=== PATIENT | female | born 1995 | race Caucasian/White ===

== ENCOUNTER 2020-06-24 15:47 | Emergency (ER) | payer OTHER, BC, SELFPAY ==
[2020-06-24 16:54] VITALS: BP 119/70; PULSE 75; RESP 18; TEMP 36.8; O2SAT 99; BMI 22.6
[2020-06-24 20:00] VITALS: BP 115/80; PULSE 65; RESP 16; TEMP 36.9; O2SAT 98
--- NOTE | 2020-06-24 20:22 | ED.MEDCLEAR ---
HPI - Medical Clearance General Source: patient, RN notes reviewed and old records reviewed Mode of arrival: ambulatory Limitations: no limitations History of Present Illness HPI Narrative: 24-year-old female here today after sustaining a needlestick at work. 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 Patient reports that she did not had much of bleeding. Patient reports that the resident has no known history of HIV or hepatitis. She has been a resident at [facility] for quite some time. Patient reports that she herself has a history of seizures and is taking seizure medicine. She would rather not wanted to take any antiviral medications at this time. Patient denies any other symptoms. Review of Systems Review of Systems: Constitutional : No Weight loss, No Fever, No Chills, No Night Sweats, No Fatigue, No Malaise ENT/Mouth : No Hearing loss, No Ear Pain, No Nasal Congestion, No Sinus Pain, No Hoarseness, No sore throat, No Rhinorrhea, No Swallowing Difficulty Eyes: No Eye Pain, No Swelling, No Redness, No Foreign Body, No Discharge, No Vision Changes Cardiovascular : No Chest Pain, No SOB, No Dyspnea on Exertion, No Orthopnea, No Edema, No Palpitations Respiratory : No Cough, No Sputum, No Wheezing, No Smoke Exposure, No Dyspnea Gastrointestinal : No Nausea, No Vomiting, No Diarrhea, No Constipation, No abdominal Pain, No Hematochezia, No Melena Genitourinary : no irregular bleeding, No Dysuria, No Urinary Frequency, No Hematuria, No Urinary Incontinence, No Urgency, No Flank Pain, No Urinary Flow Changes, No Hesitancy Musculoskeletal : No joint pain, No Myalgias, No Joint Swelling Skin : No Skin Lesions, No rash, needlestick to her right index finger Neuro : No Weakness, No Numbness, No Paresthesias, No Loss of Consciousness, No Dizziness, No Headache Psych : No Anxiety/Panic, No Depression, No SI/HI/AH/VH, No Social Issues, Heme/Lymph: No Bruising, No Bleeding,No Lymphadenopathy Endocrine : No Polyuria, No Polydipsia, No Temperature Intolerance Yes all other systems are reviewed and are negative [facility] Past Medical History Medical History (Updated 06/25/20 @ 00:00 by Background Daemon) Neurofibromatosis type 1-like syndrome Physical Exam Vital Signs: Vital Signs: Last Vital Signs Temp 98.4 F 06/24/20 20:00 Pulse 65 06/24/20 20:00 Resp 16 06/24/20 20:00 BP 115/80 06/24/20 20:00 Pulse Ox 98 06/24/20 20:00 Body Mass Index 22.6 Const: General: healthy appearing, no acute distress and well developed Nutritional Appearance: well nourished Orientation/consciousness: patient oriented x3 Neck: Neck: Yes normal visual inspection, Yes full ROM and Yes trachea midline Thyroid: Thyroid normal Resp: Auscultation: clear to auscultation bilaterally Cardio: Rate: regular rate Rhythm: regular rhythm GI: Inspection: Yes normal to inspection and No distended Palpation (GI): No hepatosplenomegaly present Auscultation: normal bowel sounds Skin: General skin exam: elasticity normal, turgor normal and dry skin Neuro: General: patient oriented x3 Course Course Course Narrative: 24-year-old is here today after getting stuck with diabetic Lancet. Lancet was used on an elderly female to check her blood sugar. Patient would rather not take any antiviral medication as she is on seizure medications. I will have her follow-up with [facility] to see if there is possible risk. If the staff feels that the resident should be checked for HIV and hepatitis, then patient should return either to [facility] or [facility]. She verbalizes understanding and is agreeable to plan of care. She was given the opportunity to ask questions and all questions answered. Discharge Plan Discharge Clinical Impression: Exposure to body fluid due to accidental needlestick injury Patient Disposition: Home, Self-Care Instructions: Postexposure Prophylaxis (ED) Additional Instructions: You were seen here today after being stuck with diabetic lancet. The resident that resides at [facility] has very low probability of having HIV, hepatitis B, C. Please follow-up with [facility], if the staff feels that patient should be tested for hepatitis or HIV, then they can test the resident. If you change you mind you my follow-up with your employer or with [facility] at [phone]. You may return to emergency department if you will have any other concerning symptoms. Interventions: ED Discharge Assessment Last Done: 06/24/20 20:49 Discharge Date/Time: 06/24/20 20:50
== END 2020-06-24 20:50 | disposition home or self-care (01) ==
PROVIDERS: Emergency Provider Internal Medicine
DX: Z04.2 Encounter for examination and observation following work accident (principal); Z77.21 Contact with and (suspected) exposure to potentially hazardous body fluids
CPT/HCPCS: 99282; 99284

== ENCOUNTER → 2020-06-25 11:24 | Outpatient (BNVA) | payer OTHER, SELFPAY | PROVIDERS: Visit Provider Physician Assistant Medical | DX: Z77.21 Contact with and (suspected) exposure to potentially hazardous body fluids (principal) | CPT/HCPCS: 36415; 84450; 84460; 86706; 86803; 87389; 99203 ==